=== PATIENT | female | born 1975 | race Caucasian/White ===

== ENCOUNTER 2023-01-20 13:29 | Emergency (ER) | payer OTHER ==
[2023-01-20] MEDS ORDERED: ALPRAZolam 0.25 MG Tab PO ONE (14:27)
[2023-01-20 14:50] LABS: CHLORIDE,CL 104 mmol/L (98-107); SODIUM,NA 142 mmol/L (136-145)
[2023-01-20 15:00] LABS: ANION GAP 13.2 mmol/L (5-15); ESTIMATED GFR 107 mL/min (>=60)
[2023-01-20] MEDS ORDERED: Potassium Chloride 20 MEQ Tab.ER PO ONE (15:20)
== END 2023-01-20 16:09 | disposition home or self-care (01) ==
LOC: VM.ED 13:29
DX: F41.9 Anxiety disorder, unspecified (principal); E87.6 Hypokalemia; Z88.8 Allergy status to other drugs, medicaments and biological substances
CPT/HCPCS: 36415; 80053; 84443; 84484; 85025; 93005; 93010; 99284; A9270